=== PATIENT | male | born 1990 | race African-American/Black ===

== ENCOUNTER 2017-04-25 10:11 | Emergency (ER) | payer MEDICAID ==
[~2017-04-25] VITALS: Ht 167.6 cm; Wt 56.0 kg
[2017-04-25 12:41] LABS: BASOPHILS % 0.5 % (0.0-2.0); EOSINOPHILS % 3.7 % (0.0-5.0); HEMATOCRIT. 47.1 % (42.0-52.0); HEMOGLOBIN. 15.3 g/dL (14.0-18.0); LYMPHOCYTES % 16.6 % (20.0-50.0); MEAN CORPUSCULAR HEMOGLOBIN 26.8 pg (28.0-32.0); MEAN CORPUSCULAR VOLUME 82.4 fL (80.0-94.0); MEAN PLATELET VOLUME 9.3 fl (7.4-10.4); MONOCYTES % 7.6 % (2.0-8.0); NEUTROPHILS % 71.6 % (40.0-76.0); PLATELET 188 x1000/uL (130-400); RED BLOOD CELL COUNT 5.71 mill/uL (4.7-6.1); RED CELL DISTRIBUTION WIDTH 13.7 % (11.6-14.6)
[2017-04-25 12:46] LABS: CHLORIDE 105 mEq/L (98-107)
[2017-04-25 12:47] LABS: PROTHROMBIN TIME 10.8 sec (9.4-11.6)
[2017-04-25 13:41] LABS: CLARITY URINE CLEAR (CLEAR); COLOR URINE YELLOW (YELLOW); KETONES URINE TRACE (NEGATIVE); LEUKOCYTE ESTERASE URINE NEGATIVE (NEGATIVE); NITRITE URINE NEGATIVE (NEGATIVE); OCCULT BLOOD URINE NEGATIVE (NEGATIVE); PH URINE 5.5 (4.5-8.0); PROTEIN URINE NEGATIVE (NEGATIVE); SPECIFIC GRAVITY URINE 1.031 (1.005-1.030)
[2017-04-25] MEDS ORDERED: MAGNESIUM CITRATE 300ML SOLUTION PO ONE (14:45)
[2017-04-25] MEDS ORDERED: LACTULOSE 20G/30ML UDC PO ONE (14:45)
[2017-04-25] MEDS ORDERED: ONDANSETRON 4MG ODT PO ONE (14:45)
[2017-04-25 18:15] VITALS: BP 131/64
[2017-04-30 04:13] LABS: OVA & PARASITE EXAM Final report (.)
== END 2017-04-25 18:53 | disposition home or self-care (01) ==
LOC: ER 10:23
DX: K59.00 Constipation, unspecified (principal); R11.0 Nausea; J45.909 Unspecified asthma, uncomplicated; Z98.890 Other specified postprocedural states
CPT/HCPCS: 36415; 80053; 81003; 83690; 85025; 85610; 87177; 87209; 99284; Q0162